=== PATIENT | female | born 1995 | race African-American/Black ===

== ENCOUNTER 2018-07-22 22:15 | Emergency (ER) | payer MEDICAID ==
[~2018-07-22] VITALS: Ht 157.5 cm; Wt 49.1 kg
[2018-07-22 22:18] VITALS: TEMP 98.5
[2018-07-22] MEDS ORDERED: MELATONIN1 MG PO (22:24)
[2018-07-22] MEDS ORDERED: CALCIUM CARBON650 M2 PO (22:24)
[2018-07-22 22:53] LABS: COLLECTION METHOD CLEAN CATCH
[2018-07-22 23:27] LABS: MUCOUS Present /lpf; PH 8 (5-8); URINE APPEARANCE Cloudy; URINE BACTERIA Many /hpf; URINE BILIRUBIN Negative (NEGATIVE); URINE BLOOD Negative (NEGATIVE); URINE COLOR Yellow; URINE GLUCOSE Negative (NEGATIVE); URINE KETONE Negative (NEGATIVE); URINE LEUKOCYTE ESTERASE 2+ (NEGATIVE); URINE NITRATE Negative (NEGATIVE); URINE PROTEIN(semi-quant) Negative (NEGATIVE); URINE RBC 0-2 /hpf
[2018-07-22 23:52] LABS: BASO # 0.1 (0.0-0.2); BASO % 0.5 % (0.0-2.0); EOS # 0.1 (0.0-0.7); EOS % 0.6 % (0-4.0); GRAN # 5.9 (1.4-6.5); GRAN % 58.5 % (42.2-75.2); HEMOGLOBIN 11.1 g/dl (12.0-15.0); LYMPH # 3.2 (1.2-3.4); LYMPH % 31.3 % (20.0-51.0); MEAN CELL VOLUME 76 fl (80.0-95.0); MEAN CORPUSCULAR HEMOGLOBIN 23 pg (26.0-32.0); MEAN CORPUSCULAR HGB CONC 31 g/dl (33.0-37.0); MEAN PLATELET VOLUME 10.5 fl (7.4-10.4); MONO # 0.9 (0.1-0.6); MONO % 8.8 % (1.7-9.3); PLATELET COUNT 290 K/mm3 (130-400); RED BLOOD COUNT 4.76 M/mm3 (4.10-5.30)
[2018-07-23 00:08] LABS: ALANINE AMINOTRANSFERASE 21 U/L (9-52); ALKALINE PHOSPHATASE 71 U/L (50-136); ANION GAP 7 mmol/L (7-16); AST,SGOT 23 U/L (15-37); BILIRUBIN,TOTAL 0.4 mg/dL (0.0-1.0); BLOOD UREA NITROGEN 12 mg/dL (7-17); C-REACTIVE PROTEIN < 0.5 mg/dL (0.0-0.9); CALCIUM 9.1 mg/dL (8.4-10.2); CARBON DIOXIDE 27 mmol/L (22-30); CHLORIDE 106 mmol/L (98-107); CREATININE, serum 0.86 mg/dL (0.52-1.25); GLUCOSE 93 mg/dL (74-106); LIPASE 92 U/L (23-300); POTASSIUM 3.6 mmol/L (3.4-5.0); SODIUM 140 mmol/L (137-145); TOTAL PROTEIN 7.7 gm/dL (6.4-8.2)
[2018-07-23] MEDS ORDERED: OMNICEF 300MG300 MG PO (01:13)
[2018-07-23 01:30] VITALS: BP 106/73; PULSE 86
== END 2018-07-23 01:30 | disposition home or self-care (01) ==
LOC: COL.ER 22:15
PROVIDERS: Physician Assistant
DX: N39.0 Urinary tract infection, site not specified (principal); R51 Headache; F32.9 Major depressive disorder, single episode, unspecified; Z96.22 Myringotomy tube(s) status
CPT/HCPCS: A4216; J0696; J2405; J7030

== ENCOUNTER 2018-11-24 21:15 | Emergency (ER) | payer OTHER ==
[~2018-11-24] VITALS: Ht 157.5 cm; Wt 50.0 kg
[~2018-11-24 21:15] MED LIST: CALCIUM CARBON650 M2 PO; MELATONIN1 MG PO; OMNICEF 300MG300 MG PO
[2018-11-24 21:19] VITALS: BP 115/68; TEMP 97.9
[2018-11-24] MEDS ORDERED: PREDNISONE20 MG PO (22:33)
[2018-11-24] MEDS ORDERED: PROAIR HFA0.09 MG/AC IH (22:33)
[2018-11-24] MEDS ORDERED: ZITHROMAX Z PA250 MG PO (22:48)
[2018-11-24 22:57] VITALS: PULSE 73
== END 2018-11-24 23:00 | disposition home or self-care (01) ==
LOC: COL.ER 21:15
DX: J45.901 Unspecified asthma with (acute) exacerbation (principal); M54.6 Pain in thoracic spine

== ENCOUNTER 2018-12-15 16:31 | Emergency (ER) | payer OTHER ==
[~2018-12-15] VITALS: Ht 160 cm; Wt 53.9 kg
[~2018-12-15 16:31] MED LIST changes: +PREDNISONE20 MG PO; +PROAIR HFA0.09 MG/AC IH; +ZITHROMAX Z PA250 MG PO
[2018-12-15 16:43] VITALS: TEMP 98.1
[2018-12-15 17:36] LABS: BASO % 0.3 % (0.0-2.0); EOS # 0.1 (0.0-0.7); EOS % 0.8 % (0-4.0); GRAN # 4.2 (1.4-6.5); GRAN % 56.6 % (42.2-75.2); HEMATOCRIT 38.4 % (37.0-47.0); HEMOGLOBIN 11.6 g/dl (12.5-16.0); LYMPH # 2.4 (1.2-3.4); LYMPH % 32.2 % (20.0-51.0); MEAN CELL VOLUME 79 fl (80.0-100.0); MEAN CORPUSCULAR HEMOGLOBIN 24 pg (27.0-31.0); MEAN CORPUSCULAR HGB CONC 30 g/dl (33.0-37.0); MONO # 0.7 (0.1-0.6); MONO % 9.8 % (1.7-9.3); PLATELET COUNT 260 K/mm3 (130-400); RED BLOOD COUNT 4.88 M/mm3 (4.10-5.30); REDCELL DISTRIBUTION WIDTH-CV 13.8 % (11.5-14.5)
[2018-12-15 17:54] LABS: BILIRUBIN,TOTAL 0.4 mg/dL (0.0-1.0); CALCIUM 8.9 mg/dL (8.4-10.2); CREATININE, serum 0.9 (0.52-1.25); POTASSIUM 4.2 mmol/L (3.4-5.0); TOTAL PROTEIN 7.6 gm/dL (6.4-8.2)
[2018-12-15] MEDS ORDERED: ORTHO TRI-CYCLE1 TAB PO (18:28)
[2018-12-15 19:26] VITALS: BP 108/72; PULSE 82
== END 2018-12-15 19:26 | disposition home or self-care (01) ==
LOC: COL.ER 16:31
PROVIDERS: Emergency Medicine
DX: R42 Dizziness and giddiness (principal); N93.9 Abnormal uterine and vaginal bleeding, unspecified; F32.9 Major depressive disorder, single episode, unspecified; F41.9 Anxiety disorder, unspecified; J45.909 Unspecified asthma, uncomplicated; Z98.890 Other specified postprocedural states
CPT/HCPCS: J7030

== ENCOUNTER 2019-11-03 10:15 | Emergency (ER) | payer OTHER ==
[~2019-11-03] VITALS: Ht 160 cm; Wt 54.5 kg
[~2019-11-03 10:15] MED LIST changes: +ORTHO TRI-CYCLE1 TAB PO
[2019-11-03 10:22] VITALS: BP 106/58; TEMP 97.5
[2019-11-03] MEDS ORDERED: IPRATROPIUM BROM3 M1 IH (11:09)
[2019-11-03 11:11] VITALS: PULSE 89
== END 2019-11-03 11:20 | disposition home or self-care (01) ==
LOC: COL.ER 10:15
DX: J45.901 Unspecified asthma with (acute) exacerbation (principal)

== ENCOUNTER 2020-06-12 07:52 | Emergency (ER) | payer SELFPAY ==
[~2020-06-12] VITALS: Ht 160 cm; Wt 63.6 kg
[~2020-06-12 07:52] MED LIST changes: +IPRATROPIUM BROM3 M1 IH
[2020-06-12 07:57] VITALS: TEMP 98.9
[2020-06-12 08:57] LABS: BASO % 0.2 % (0.0-2.0); EOS % 0.1 % (0-4.0); GRAN # 7.2 (1.4-6.5); GRAN % 82.1 % (42.2-75.2); HEMOGLOBIN 10.8 g/dl (12.5-16.0); LYMPH # 1.1 (1.2-3.4); LYMPH % 12.2 % (20.0-51.0); MEAN CELL VOLUME 77 fl (80.0-100.0); MEAN CORPUSCULAR HEMOGLOBIN 24 pg (27.0-31.0); MEAN CORPUSCULAR HGB CONC 31 g/dl (33.0-37.0); MEAN PLATELET VOLUME 11.2 fl (7.4-10.4); MONO # 0.5 (0.1-0.6); MONO % 5.1 % (1.7-9.3); PLATELET COUNT 265 K/mm3 (130-400); REDCELL DISTRIBUTION WIDTH-CV 13.5 % (11.5-14.5)
[2020-06-12 08:58] LABS: HEMATOCRIT 34.7 % (37.0-47.0)
[2020-06-12 09:24] LABS: ALCOHOL(ethanol),MEDICAL < 10 mg/dL; ANION GAP 8 mmol/L (7-16); BLOOD UREA NITROGEN 13 mg/dL (7-17); CARBON DIOXIDE 25 mmol/L (22-30); CHLORIDE 105 mmol/L (98-107); CREATININE, serum 0.9 (0.52-1.25); GLUCOSE 84 mg/dL (74-106); POTASSIUM 4.1 mmol/L (3.4-5.0); SODIUM 138 mmol/L (137-145)
[2020-06-12 09:25] LABS: ACETAMINOPHEN < 10 ug/mL (10-30); ALANINE AMINOTRANSFERASE 17 U/L (4-34); ALBUMIN 4.2 gm/dL (3.5-5.0); ALKALINE PHOSPHATASE 63 U/L (50-136); AST,SGOT 32 U/L (15-37); BILIRUBIN,TOTAL 0.7 mg/dL (0.0-1.0); CALCIUM 9.1 mg/dL (8.4-10.2); SALICYLATE < 10.0 mg/dL; TOTAL PROTEIN 7.5 gm/dL (6.4-8.2)
[2020-06-12 09:46] LABS: TSH w REFLEX 0.918 uIU/mL (0.465-4.680)
[2020-06-12 11:00] LABS: COLLECTION METHOD CLEAN CATCH
[2020-06-12 11:14] LABS: MUCOUS Present /lpf; PH 7 (5-8); SQUAMOUS EPITHELIAL 0-2 /hpf; URINE APPEARANCE Clear; URINE BACTERIA None Seen /hpf; URINE BILIRUBIN Negative (NEGATIVE); URINE BLOOD Negative (NEGATIVE); URINE COLOR Yellow; URINE GLUCOSE Negative (NEGATIVE); URINE KETONE 1+ (NEGATIVE); URINE LEUKOCYTE ESTERASE Negative (NEGATIVE); URINE NITRATE Negative (NEGATIVE); URINE PROTEIN(semi-quant) Negative (NEGATIVE); URINE RBC 0-2 /hpf
[2020-06-12 11:23] LABS: TRICYCLIC ANTIDEPRESS URINE NEGATIVE
[2020-06-12 13:05] VITALS: BP 112/56; PULSE 81
== END 2020-06-12 13:05 | disposition home or self-care (01) ==
LOC: COL.ER 07:52
PROVIDERS: Emergency Medicine
DX: S61.512A Laceration without foreign body of left wrist, initial encounter (principal); F32.9 Major depressive disorder, single episode, unspecified; Z20.822 Contact with and (suspected) exposure to COVID-19; Z88.6 Allergy status to analgesic agent; Z32.02 Encounter for pregnancy test, result negative; X78.1XXA Intentional self-harm by knife, initial encounter

== ENCOUNTER 2020-11-19 10:36 | Emergency (ER) | payer SELFPAY ==
[~2020-11-19] VITALS: Ht 160 cm; Wt 50.5 kg
[2020-11-19 10:55] VITALS: BP 105/57; TEMP 98.7
[2020-11-19 11:46] LABS: STREP SCREEN NEGATIVE
[2020-11-19 12:23] VITALS: PULSE 74
== END 2020-11-19 12:23 | disposition home or self-care (01) ==
LOC: COL.ER 10:36
PROVIDERS: Physician Assistant
DX: J02.9 Acute pharyngitis, unspecified (principal); J35.8 Other chronic diseases of tonsils and adenoids